=== PATIENT | male | born 1995 | race Caucasian/White ===

== ENCOUNTER 2018-08-30 15:24 | Emergency (ER) | payer SELFPAY ==
[~2018-08-30] VITALS: Ht 167.6 cm; Wt 83.9 kg
[2018-08-30 15:43] VITALS: Ht 167.6 cm; Wt 83.9 kg
[2018-08-30 17:31] VITALS: BP 112/76
== END 2018-08-30 17:31 | disposition home or self-care (01) ==
LOC: ED 15:24
DX: S61.211A Laceration without foreign body of left index finger without damage to nail, initial encounter (principal); S60.022A Contusion of left index finger without damage to nail, initial encounter; W22.8XXA Striking against or struck by other objects, initial encounter; Y93.89 Activity, other specified; Y92.89 Other specified places as the place of occurrence of the external cause; Y99.8 Other external cause status
CPT/HCPCS: 90715

== ENCOUNTER 2019-10-30 07:56 | Emergency (ER) | payer MEDICAID ==
[~2019-10-30] VITALS: Ht 170.2 cm; Wt 98.0 kg
[2019-10-30 08:09] VITALS: Ht 170.2 cm; Wt 98.0 kg
[2019-10-30 10:38] VITALS: BP 139/82
== END 2019-10-30 10:38 | disposition home or self-care (01) ==
LOC: ED 07:56
DX: J11.1 Influenza due to unidentified influenza virus with other respiratory manifestations (principal)
CPT/HCPCS: 87804

== ENCOUNTER 2020-08-17 20:06 | Emergency (ER) | payer SELFPAY ==
[~2020-08-17] VITALS: Ht 167.6 cm; Wt 102.1 kg
[2020-08-17 20:16] VITALS: BP 135/89
== END 2020-08-17 21:12 | disposition home or self-care (01) ==
LOC: ED 20:06
DX: L60.0 Ingrowing nail (principal)
CPT/HCPCS: J2001